=== PATIENT | female | born 1980 | race Caucasian/White ===

== ENCOUNTER 2020-08-31 23:45 | Emergency (ER) | payer OTHER ==
[~2020-08-31] VITALS: Ht 160 cm; Wt 72.6 kg
[2020-08-31 23:45] VITALS: BP_SYST 158
--- NOTE | 2020-08-31 23:45 | NUR ---
PT CONSENTED TO BLOOD TEST REQUEST BY [employer]. DOCUMENT SIGNED AND WITNESSED BY RN.
--- NOTE | 2020-08-31 23:45 | NUR ---
PT TO HALLWAY BED WITH LAW ENFORCEMENT
--- NOTE | 2020-09-01 00:05 | NUR ---
DR. GOMEZ AT BEDSIDE FOR EVALUATION
--- NOTE | 2020-09-01 00:55 | NUR ---
PT MOVED TO BED 3, GOWNED AND ATTACHED TO MONITOR.
--- NOTE | 2020-09-01 02:15 | NUR ---
CT SCAN COMPLETED, AWAITING RESULTS FOR MEDICAL CLEARANCE FOR BOOKING.
--- NOTE | 2020-09-01 02:26 | NUR ---
Written and verbal consent obtained from patient for blood alcohol, name and verified by patient. Disinfected patient's skin with BETADINE that did not contain alcohol or other volatile organic compound. Collected the blood from the subject named by venipuncture, in the presence of Officer WALTER/WAQAS. Used a sterile, dry hypodermic needle and dry vacuum blood collection. Two dry vacuum blood collection was supplied by the officers named above. Withdrew a specimen of blood from RIGHT ARM of the subject named above. Inverted both blood tubes several times to ensure that the preservative and anticoagulant were thoroughly mixed in the blood specimen. I initialed both blood tube labels for identification. The labeled blood tubes were handed directly to the Officer named above. The blood tubes stopper remained in place while I had possession of the blood tubes. The Officer placed tubes into envelope and sealed it in my presence. Envelope initialed by myself and Officer named above. Patient tolerated well, bandage applied, and bleeding controlled.
--- NOTE | 2020-09-01 03:08 | NUR ---
REPORT GIVEN TO RAMO PARKER WHO WILL ASSUME CARE.
[2020-09-01 03:25] VITALS: BP_SYST 142
--- NOTE | 2020-09-01 03:25 | NUR ---
Patient medically cleared by ER MD, given written and verbal discharge instructions and verbalizes understanding. ER MD discussed with patient the results and treatment provided. Patient in stable condition. ID arm band removed. No Rx given. Patient educated on pain management and to follow up with PMD. Pain Scale 2/10. Opportunity for questions provided and answered. Patient was accompanied by Law enforement officer.
== END 2020-09-01 03:25 ==
LOC: SED 23:45
DX: F10.129 Alcohol abuse with intoxication, unspecified (principal); V49.9XXA Car occupant (driver) (passenger) injured in unspecified traffic accident, initial encounter; Y93.89 Activity, other specified; Y92.413 State road as the place of occurrence of the external cause; Y99.8 Other external cause status
CPT/HCPCS: 70450-TC; 71250-TC; 72125-TC; 76376; 81025; 99285